=== PATIENT | female | born 1970 | race Caucasian/White ===

== ENCOUNTER 2017-08-14 21:08 | Emergency (ER) | payer SELFPAY ==
[~2017-08-14] VITALS: Ht 165.1 cm; Wt 90.7 kg
[2017-08-14 21:16] VITALS: BP 110/71
--- NOTE | 2017-08-14 22:30 | NUR ---
CALLED PT IN [place], NO RESPONCE
--- NOTE | 2017-08-14 23:00 | NUR ---
CALLED PT IN [place], NO RESPONCE
--- NOTE | 2017-08-14 23:23 | NUR ---
CALLED PT IN [place], NO RESPONCE
--- NOTE | 2017-08-14 23:23 | NUR ---
CALLED PT IN [place], NO RESPONCE
== END 2017-08-14 23:25 | disposition left against medical advice (07) ==
LOC: ER 21:11
DX: Z53.21 Procedure and treatment not carried out due to patient leaving prior to being seen by health care provider (principal)
CPT/HCPCS: A4606; Z7610